=== PATIENT | male | born 1990 | race African-American/Black ===

== ENCOUNTER 2017-10-10 09:10 | Emergency (ER) | payer OTHER ==
[~2017-10-10] VITALS: Ht 172.7 cm; Wt 81.8 kg
[~2017-10-10 09:10] MED LIST: buspar
[2017-10-10 10:12] VITALS: BP 127/71
== END 2017-10-10 10:41 | disposition home or self-care (01) ==
LOC: EMS 09:10
DX: R07.2 Precordial pain (principal); M79.641 Pain in right hand; M79.89 Other specified soft tissue disorders; I10 Essential (primary) hypertension; F12.90 Cannabis use, unspecified, uncomplicated; F19.90 Other psychoactive substance use, unspecified, uncomplicated
CPT/HCPCS: 93005; 99283